=== PATIENT | female | born 2000 | race African-American/Black ===

== ENCOUNTER 2025-10-26 17:45 | Emergency (ER) | payer MEDICAID ==
[~2025-10-26] VITALS: Ht 167.6 cm; Wt 69.0 kg
[2025-10-26 17:49] VITALS: O2SAT 100
[2025-10-26 17:58] VITALS: BP 134/88; PULSE 81; RESP 16; TEMP 36.9; O2SAT 100
[2025-10-26 19:30] LABS: BASOPHILS % 0.9 % (0.0-2.0); EOSINOPHILS % 0.3 % (0.0-5.0); HEMATOCRIT. 43.4 % (36.0-48.0); HEMOGLOBIN. 14.3 g/dL (12.0-16.0); LYMPHOCYTES % 28.6 % (20.0-50.0); MEAN PLATELET VOLUME 8.6 fl (7.4-10.4); MONOCYTES % 5.0 % (2.0-8.0); NEUTROPHILS % 65.2 % (40.0-76.0); PLATELET 315 x1000/uL (130-400); RED BLOOD CELL COUNT 4.79 mill/uL (4.2-5.4); RED CELL DISTRIBUTION WIDTH 14.2 % (11.6-14.6)
[2025-10-26 19:42] LABS: CREATININE 0.9 mg/dL (0.6-1.0); UREA NITROGEN BLOOD 9 mg/dL (9-23)
[2025-10-26 19:43] LABS: ETHANOL BLOOD < 10 mg/dL (<10); PROTEIN TOTAL 7.8 g/dL (6.0-8.3)
[2025-10-26 19:45] LABS: ASPARTATE AMINOTRANSFERASE 45 IU/L (<34); BILIRUBIN DIRECT 0.2 mg/dL (<=3.0); BILIRUBIN TOTAL 0.5 mg/dL (0.1-1.0)
[2025-10-26 19:54] LABS: HCG SCREEN NEGATIVE
== END 2025-10-26 20:09 | disposition left against medical advice (07) ==
LOC: ER 17:45
DX: Z00.00 Encounter for general adult medical examination without abnormal findings (principal); Z53.21 Procedure and treatment not carried out due to patient leaving prior to being seen by health care provider
CPT/HCPCS: 36415; 80048; 80076; 80320; 84703; 85025; 99281; G0480